=== PATIENT | female | born 1995 | race Caucasian/White ===

== ENCOUNTER → 2022-03-08 | Day surgery (SDC) | payer OTHER ==
[~2022-03-08] VITALS: Ht 165.1 cm; Wt 74.8 kg
[~2022-03-08] MED LIST: BUSPIRONE HCL10 MG PO; CLARITIN-D 241 EACH PO; HYDROXYZINE PAM25 MG PO; MELATONIN5 M2 PO; PAROXETINE 20MG20 MG PO
[2022-03-08 08:50] LABS: HCG (URINE) SCREEN NEGATIVE (NEGATIVE)
[2022-03-08 08:53] LABS: BASOPHIL 0.5 % (0-2); EOSINOPHIL 1.9 % (0-5); HCT 43.4 % (37.0-47.0); HGB 14.5 g/dl (12.5-16.0); LYMPHOCYTE 35.8 % (15-48); MCH 29.5 pg (25.0-31.0); MCHC 33.4 g/dL (32.0-36.0); MCV 88.2 fL (78.0-100.0); MONOCYTE 7.3 % (0-12); NEUTROPHIL 54.2 % (41-80); NRBC 0; PLT 263 K/uL (150-400); RBC 4.92 M/uL (4.20-5.40); WBC 7.8 K/uL (4.0-10.5)
== END | disposition home or self-care (01) ==
LOC: FAS 08:25
PROVIDERS: Oral & Maxillofacial Surgery
DX: K02.9 Dental caries, unspecified (principal); K04.7 Periapical abscess without sinus; F32.A Depression, unspecified; F17.200 Nicotine dependence, unspecified, uncomplicated; Z88.2 Allergy status to sulfonamides
CPT/HCPCS: D7140; D7210; D7310; 36415; 84703; 85025; J0330; J1100; J1170; J2250; J2405; J2704; J3010; J7120